=== PATIENT | male | born 1965 | race Caucasian/White ===

== ENCOUNTER 2017-01-22 17:03 | Emergency (ER) | payer BC ==
[2017-01-22 17:18] VITALS: BP 119/66
--- NOTE | 2017-01-22 17:43 | UC ---
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 cough started 5 days ago. aggravated by heat in his office this week. but better now that he is in AC. mid strenal chest pain started this AM. crushing like someone is sitting on his chest. hurts when he coughs. + DM, last a1c 6.7, on statin for lipids and ASA for prophylaxis. + h/o DVT in rt leg in past s/p ankle frx, although genetic testing was never done. He is adopted and does not know any FHx. No asthma or copd. never needed inhalers. hashad pneumonia in past. unsure this is what it felt like. c/o rt leg cramp last night in calf, left foot also. no swelling in calf. no pain now. no fevers that he knows of. - History of Current Complaint Chief Complaint: UCGeneralIllness Stated Complaint: COUGH,CHEST PAIN,HEADACHES (DIABETIC) Time Seen by Provider: 01/22/17 17:33 - Allergies/Home Medications Allergies/Adverse Reactions: Allergies Allergy/AdvReac Type Severity Reaction Status Date / Time Morphine Allergy Mild Itching Verified 01/22/17 17:18 Home Medications: Home Medications Aspirin [Aspirin Adult Low Dose 81 MG] 81 mg PO DAILY 01/22/17 [History Confirmed 01/22/17] Ibuprofen TAB* [Motrin TAB* 800 MG] 800 mg PO Q6H PRN 01/22/17 [History Confirmed 01/22/17] Methylphenidate HCl [Ritalin LA] 10 mg PO DAILY 01/22/17 [History Confirmed ] glipiZIDE TAB.XL* [Glucotrol XL*] 5 mg PO DAILY 01/22/17 [History Confirmed ] PMH/Surg Hx/FS Hx/Imm Hx Endocrine History: Diabetes, Dyslipidemia Cardiovascular History: Hypertension - Surgical History Surgical History: Yes Surgery Procedure, Year, and Place: henia repair 04/2011 nasal surgery 2009- sleep apnea. right knee and right ankle surgery - Family History Known Family History: Positive: Unknown - adopted - Social History Alcohol Use: None Substance Use Type: None Smoking Status (MU): Never Smoked Tobacco Review of Systems Constitutional: Negative Skin: Negative Eyes: Negative ENT: Negative Respiratory: Cough Cardiovascular: Negative, Chest Pain Gastrointestinal: Negative Genitourinary: Negative Motor: Negative Neurovascular: Negative Musculoskeletal: Negative Neurological: Negative Psychological: Negative Is Patient Immunocompromised?: No All Other Systems Reviewed And Are Negative: Yes Physical Exam Triage Information Reviewed: Yes Appearance: Well-Appearing, No Pain Distress, Well-Nourished Vital Signs: Initial Vital Signs Temp 97.8 F 01/22/17 17:10 Pulse 76 01/22/17 17:10 Resp 16 01/22/17 17:10 BP 119/66 01/22/17 17:10 Pulse Ox 97 01/22/17 17:10 Vital Signs Reviewed: Yes Eye Exam: Normal ENT Exam: Normal ENT: Positive: Pharynx normal, TMs normal. Negative: Tonsillar swelling, Tonsillar exudate Dental Exam: Normal Neck exam: Normal Neck: Positive: Supple, Nontender, No Lymphadenopathy Respiratory Exam: Normal Respiratory: Positive: Chest non-tender, Lungs clear, Normal breath sounds, No respiratory distress, No accessory muscle use. Negative: Crackles, Rhonchi Cardiovascular Exam: Normal Cardiovascular: Positive: RRR, No Murmur, Pulses Normal Abdomen Description: Positive: Nontender, Soft Musculoskeletal Exam: Normal Musculoskeletal: Positive: Other: - no calf swelling or tenderness. Neurological Exam: Normal Psychological Exam: Normal Skin Exam: Normal UC Diagnostic Evaluation - Laboratory O2 Sat by Pulse Oximetry: 97 Respiratory Course/Dx - Course Course Of Treatment: Adv ER for further eval to r/o ACS with h/o DM, HTN, lipids. also h/o dvt. adopted adn fhx unknown they are very agreeable . pt refuses ambulance [place] d/t cost. wants ambulance. AMA form signed aware of risks of MVA, delay in arrival, permanent disability loss of work and . AMA signed. EKG - NSR, nml axis, no av/josseline changes. not compared to prev. S/w Dr Alfred[facility] approx [phone] and accepts pt. - Differential Dx/Diagnosis Differential Diagnosis/HQI/PQRI: Bronchitis, CHF, Pulmonary Edema, Pulmonary Embolism, Other - ACS Provider Diagnoses: chest pain, cough Discharge - Discharge Plan Condition: Fair Disposition: TRANS HIGHER LVL OF CARE FAC Additional Instructions: Please make sure you go directly to the emergency room for further evaluation. Do not stop to get anything to eat or ho home first. we discussed ruling out heart disease and blood clot going into your chest.
== END 2017-01-22 17:53 | disposition short-term general hospital (02) ==
LOC: UCCORT 17:03
DX: R07.9 Chest pain, unspecified (principal); R05 Cough; E11.9 Type 2 diabetes mellitus without complications
CPT/HCPCS: 93005; 99212; G0463

== ENCOUNTER 2018-07-26 17:35 | Emergency (ER) | payer BC ==
[2018-07-26 18:50] VITALS: BP 126/75
[2018-07-26 19:42] LABS: Influenza A Molecular NEGATIVE (Negative); Influenza B Molecular NEGATIVE (Negative)
[2018-07-26] MEDS ORDERED: predniSONE TAB* 20 MG PO ONE (19:48)
[2018-07-26] MEDS ORDERED: Albuterol HFA INHALER* 8 gm MDI INH ONE (19:49)
--- NOTE | 2018-07-26 19:49 | UC ---
Respiratory Complaint HPI - HPI Summary HPI Summary: 53 yo male with cough/chest tightness/wheezing x 3 days green sputum no SOB hx of asthma and pneumonia - History of Current Complaint Chief Complaint: UCGeneralIllness Stated Complaint: COUGH,CHEST CAMERON,FEVER Time Seen by Provider: 07/26/18 19:17 Hx Obtained From: Patient Onset/Duration: Gradual Onset, Lasting Days Timing: Constant Severity Initially: Mild Severity Currently: Moderate Pain Intensity: 5 Pain Scale Used: 0-10 Numeric Character: Cough: Productive Aggravating Factors: Exertion, Deep Breaths Alleviating Factors: Nothing Associated Signs And Symptoms: Positive: Chills, Wheezing, URI, Nasal Congestion - Allergies/Home Medications Allergies/Adverse Reactions: Allergies Allergy/AdvReac Type Severity Reaction Status Date / Time morphine Allergy Itching Verified 07/26/18 18:44 Home Medications: Home Medications guaiFENesin [Mucinex] 600 mg PO ONCE 07/26/18 [History Confirmed 07/26/18] PMH/Surg Hx/FS Hx/Imm Hx Previously Healthy: Yes Endocrine History: Diabetes Cardiovascular History: Hypertension Respiratory History: Asthma, Pneumonia - Surgical History Surgical History: Yes Surgery Procedure, Year, and Place: henia repair 04/2011 nasal surgery 2009- sleep apnea. right knee and right ankle surgery - Family History Known Family History: Positive: Unknown - adopted - Social History Alcohol Use: None Substance Use Type: None Smoking Status (MU): Never Smoked Tobacco Review of Systems All Other Systems Reviewed And Are Negative: Yes Constitutional: Positive: Chills, Fatigue Skin: Positive: Negative Eyes: Positive: Negative ENT: Positive: Nasal Discharge, Sinus Congestion Respiratory: Positive: Cough, Other - wheezing Cardiovascular: Positive: Negative Gastrointestinal: Positive: Negative Genitourinary: Positive: Negative Motor: Positive: Negative Neurovascular: Positive: Negative Musculoskeletal: Positive: Negative Neurological: Positive: Negative Psychological: Positive: Negative Is Patient Immunocompromised?: Yes Physical Exam Triage Information Reviewed: Yes Appearance: Well-Appearing, No Pain Distress, Well-Nourished Vital Signs: Initial Vital Signs Temp 97.9 F 07/26/18 18:46 Pulse 78 07/26/18 18:46 Resp 19 07/26/18 18:46 BP 126/75 07/26/18 18:46 Pulse Ox 97 07/26/18 18:46 Vital Signs Reviewed: Yes Eyes: Positive: Conjunctiva Clear ENT: Positive: Hearing grossly normal, Pharynx normal, Nasal congestion, Nasal drainage, Uvula midline. Negative: Tonsillar swelling, Tonsillar exudate, Trismus, Muffled voice, Hoarse voice, Sinus tenderness Dental Exam: Normal Neck: Positive: Supple, Nontender, No Lymphadenopathy Respiratory: Positive: No respiratory distress, No accessory muscle use, Wheezing - with forced expiration, Other: - bronchospastic cough Cardiovascular: Positive: RRR, No Murmur Musculoskeletal: Positive: ROM Intact, No Edema Neurological: Positive: Alert Psychological Exam: Normal Skin Exam: Normal Diagnostics - Radiology No standard instances Radiology Interpretation Completed By: ED Physician Summary of Radiographic Findings: NAD Respiratory Course/Dx - Course Course Of Treatment: influenza (-) - Differential Dx/Diagnosis Provider Diagnosis: Bronchitis, acute, with bronchospasm Discharge - Sign-Out/Discharge Documenting (check all that apply): Patient Departure All imaging exams completed and their final reports reviewed: No - Discharge Plan Condition: Stable Disposition: HOME Prescriptions: Amoxicillin PO (*) [Amoxicillin 875 MG (*)] 875 mg PO BID #14 tab predniSONE [Deltasone 20 MG TAB] 40 mg PO DAILY #8 tab Patient Education Materials: Acute Bronchitis (ED), How to Use a Metered-Dose Inhaler and a Spacer (ED) Referrals: Zayra Jones MD [Primary Care Provider] - 5 Days (if not better) Additional Instructions: recheck for new or worsening symptoms - Billing Disposition and Condition Condition: STABLE Disposition: Home
[2018-07-26] MEDS ORDERED: Amoxicillin PO (*) 250 MG CAP PO ONE (19:51)
[2018-07-26] MEDS ORDERED: Amoxicillin PO (*) 500 MG CAP PO ONE (19:51)
--- NOTE | 2018-07-27 16:33 | ED ---
Progress - Progress Note Progress Note: chest xray NAD per radiology reading. Course/Dx - Diagnoses Provider Diagnoses: Bronchitis, acute, with bronchospasm Discharge - Sign-Out/Discharge Documenting (check all that apply): Patient Departure All imaging exams completed and their final reports reviewed: Yes - Discharge Plan Condition: Stable Disposition: HOME Prescriptions: Amoxicillin PO (*) [Amoxicillin 875 MG (*)] 875 mg PO BID #14 tab predniSONE [Deltasone 20 MG TAB] 40 mg PO DAILY #8 tab Patient Education Materials: Acute Bronchitis (ED), How to Use a Metered-Dose Inhaler and a Spacer (ED) Referrals: Zayra Jones MD [Primary Care Provider] - 5 Days (if not better) Additional Instructions: recheck for new or worsening symptoms - Billing Disposition and Condition Condition: STABLE Disposition: Home
== END 2018-07-26 20:19 | disposition home or self-care (01) ==
LOC: UCCORT 17:35
DX: J20.9 Acute bronchitis, unspecified (principal); J45.909 Unspecified asthma, uncomplicated; E11.9 Type 2 diabetes mellitus without complications; I10 Essential (primary) hypertension; Z87.01 Personal history of pneumonia (recurrent); Z88.5 Allergy status to narcotic agent
CPT/HCPCS: 71046; 99213; A9270-GY; G0463; J7512

== ENCOUNTER 2020-12-15 07:30 | Inpatient (IN) ==
[~2020-12-15 07:30] MED LIST: Buffered Lidocaine 1% SYRIN 1 ml INTRADERM ONE; Famotidine IV 10 MG/ML 2 ml VIAL (20 mg) IV ONE; Lactated Ringers 1000 ml BAG 1,000 ML IV SCH
[2020-12-15] MEDS ORDERED: ceFAZolin 2 GM in NS PREMIX 2 GM/100 ML BAG IVPB ONE (08:22)
[2020-12-15] MEDS ORDERED: Famotidine IV 10 MG/ML 2 ml VIAL (20 mg) ONE (08:22)
[2020-12-15] MEDS ORDERED: ceFAZolin 1 GM ADVAN 1 GM ADDV.VIAL IVPB ONE (08:22)
[2020-12-15] MEDS ORDERED: Heparin 5000 UNITS/ML 1 mL VIAL ONE (08:22)
[2020-12-15] MEDS ORDERED: Bupivacaine 0.25% EPI 200,000 30 ML SDV ONE (09:13)
[2020-12-15] MEDS ORDERED: Dexamethasone IV 4 MG/ML VIAL 1 ml VIAL ONE (09:21)
[2020-12-15] MEDS ORDERED: Lidocaine 2% PF 5 ML VIAL ONE (09:21)
[2020-12-15] MEDS ORDERED: Ondansetron 4 mg VIAL 2 MG/ML 2 ml VIAL ONE ×2 (09:21→13:49)
[2020-12-15] MEDS ORDERED: Propofol 10 MG/ML 20 ML BTL ONE (09:21)
[2020-12-15] MEDS ORDERED: Ketamine HCL 50 mg/ml 10 ml VIAL (500 MG) ONE (09:22)
[2020-12-15] MEDS ORDERED: fentaNYL 250 mcg/5 ml 50 MCG/ML 5 ml VIAL (250 MCG) ONE (09:22)
[2020-12-15] MEDS ORDERED: Rocuronium 50 mg VIAL 10 mg/ml 5 ml VIAL (50 mg) ONE ×2 (09:22→10:37)
[2020-12-15] MEDS ORDERED: Midazolam 5 mg/5 ml VIAL 1 mg/ml 5 ml VIAL (5 mg) ONE (09:22)
[2020-12-15] MEDS ORDERED: Dextrose 50% Syringe 50 ml 25 GM/50 ML SYRINGE ONE (09:56)
[2020-12-15] MEDS ORDERED: EPHEDrine (Pressors) 50 MG/ML VIAL ONE (10:29)
[2020-12-15] MEDS ORDERED: Glycopyrrolate IV 0.2 MG/ML 1 ML VIAL ONE (10:56)
[2020-12-15] MEDS ORDERED: Atropine 1 MG/ML INJ 1 ML VIAL ONE (11:04)
[2020-12-15] MEDS ORDERED: Acetaminophen IV 1 GM/100ML 100 ML IV ONE (11:40)
[2020-12-15] MEDS ORDERED: Sugammadex 500 MG/5 ML 5 ml VIAL IV PUSH ONE (13:04)
[2020-12-15] MEDS ORDERED: Metoclopramide 5 MG/ML VIAL (10 mg) IV PRN (13:40)
[2020-12-15] MEDS ORDERED: Naloxone 0.4 mg VIAL 0.4 mg/ml 1 ml VIAL IV PRN (13:40)
[2020-12-15] MEDS ORDERED: Ondansetron 4 mg VIAL 2 MG/ML 2 ml VIAL IV PRN ×2 (13:40→13:50)
[2020-12-15] MEDS ORDERED: fentaNYL 100 mcg/2 ml 50 MCG/ML VIAL ONE (13:48)
[2020-12-15] MEDS ORDERED: Metoclopramide 5 MG/ML VIAL (10 mg) ONE (13:49)
[2020-12-15] MEDS ORDERED: diPHENhydraMINE IV 50 MG/ML 1 ml VIAL (BENADRYL) SLOW PUSH PRN (13:50)
[2020-12-15] MEDS ORDERED: HYDROmorphone 0.5 MG/0.5 ML SYRINGE IV SLOW PU PRN (13:50)
[2020-12-15] MEDS: fentaNYL 100 mcg/2 ml 50 MCG/ML VIAL IV PRN ×2 (13:51→14:21)
[2020-12-15] MEDS: Lactated Ringers 1000 ml BAG 1,000 ML IV SCH (15:28)
[2020-12-15] MEDS: HYDROmorphone 1 MG/1 ML SYRINGE IV SLOW PU PRN ×2 (17:08→22:19)
[2020-12-15] MEDS: Heparin 5000 UNITS/ML 1 mL VIAL SUBCUT SCH (22:19)
[2020-12-15] MEDS: Famotidine IV 10 MG/ML 2 ml VIAL (20 mg) IV SLOW PU SCH (22:20)
[2020-12-16] MEDS: HYDROmorphone 1 MG/1 ML SYRINGE IV SLOW PU PRN ×2 (04:08→08:42)
[2020-12-16] MEDS: Lactated Ringers 1000 ml BAG 1,000 ML IV SCH (04:53)
[2020-12-16] MEDS: Heparin 5000 UNITS/ML 1 mL VIAL SUBCUT SCH ×3 (06:20→22:04)
[2020-12-16] MEDS: Famotidine IV 10 MG/ML 2 ml VIAL (20 mg) IV SLOW PU SCH ×2 (08:42→21:58)
[2020-12-16] MEDS: D5W 1/2 NS KCl 20 meq 1000 ml 1,000 ML IV SCH ×2 (12:42→20:18)
[2020-12-17] MEDS: D5W 1/2 NS KCl 20 meq 1000 ml 1,000 ML IV SCH (04:23)
[2020-12-17] MEDS: Heparin 5000 UNITS/ML 1 mL VIAL SUBCUT SCH (06:39)
[2020-12-17] MEDS: Famotidine IV 10 MG/ML 2 ml VIAL (20 mg) IV SLOW PU SCH (08:10)
[2020-12-17 11:30] VITALS: BP 106/64
[2020-12-18] MEDS ORDERED: Scopolamine PATCH Remove NOTE PATCH OFF ONE (06:00)
== END 2020-12-17 11:55 | disposition home or self-care (01) | DRG 403 ==
LOC: AA 09:02 → SSU 15:14
PROVIDERS: ADMIT Surgery; ATTEND Surgery

== ENCOUNTER 2023-09-14 05:30 | Observation (INO) ==
[~2023-09-14 05:30] MED LIST changes: -Buffered Lidocaine 1% SYRIN 1 ml INTRADERM ONE; -Famotidine IV 10 MG/ML 2 ml VIAL (20 mg) IV ONE; -Lactated Ringers 1000 ml BAG 1,000 ML IV SCH; +NS 0.45% 1000 ml BAG 1,000 ML IV SCH; +Naloxone 0.4 mg VIAL 0.4 mg/ml 1 ml VIAL IV PRN; +Ondansetron 4 mg VIAL 2 MG/ML 2 ml VIAL IV PRN
[2023-09-14] MEDS ORDERED: Chlorhexidine MOUTHWASH 0.12% 15 ML UDC ONE (05:59)
[2023-09-14] MEDS ORDERED: Scopolamine 1 mg/72hr PATCH ONE (06:33)
[2023-09-14] MEDS ORDERED: ceFAZolin 2 GM in NS PREMIX 2 GM/100 ML BAG IVPB ONE (06:33)
[2023-09-14 06:37] LABS: Rapid COVID-19 Molecular Undetected (Undetected)
[2023-09-14] MEDS ORDERED: Sevoflurane BOTTLE ONE (06:38)
[2023-09-14] MEDS ORDERED: Lidocaine 2% PF 5 ML VIAL ONE (06:40)
[2023-09-14] MEDS ORDERED: Propofol 10 MG/ML 20 ML BTL ONE (06:40)
[2023-09-14] MEDS ORDERED: Rocuronium 50 mg VIAL 10 mg/ml 5 ml VIAL (50 mg) ONE ×2 (06:40→07:55)
[2023-09-14] MEDS ORDERED: Dexamethasone IV 4 MG/ML VIAL 1 ml VIAL ONE (06:43)
[2023-09-14] MEDS ORDERED: Ondansetron 4 mg VIAL 2 MG/ML 2 ml VIAL ONE (06:43)
[2023-09-14] MEDS ORDERED: Phenylephrine IV 10 MG/ML 1 ml VIAL ONE (06:46)
[2023-09-14] MEDS ORDERED: Dexmedetomidine 200 mcg/2 ml 2 ml VIAL (200 mcg) ONE (06:48)
[2023-09-14] MEDS ORDERED: Midazolam 2 mg/2 ml VIAL 1 mg/ml 2 ml VIAL (2 mg) ONE (06:50)
[2023-09-14] MEDS ORDERED: fentaNYL 100 mcg/2 ml 50 MCG/ML VIAL ONE ×3 (06:50→10:29)
[2023-09-14] MEDS ORDERED: Lidocaine 1% w EPI 1:200,000 SDV 30 ML VIAL ONE (07:00)
[2023-09-14] MEDS ORDERED: Thrombin 5,000 UNITS(BOVINE) for Ultrasound Guided Pseudoaneursym ONE (07:00)
[2023-09-14] MEDS ORDERED: ceFAZolin VIAL VIAL ONE (07:00)
[2023-09-14] MEDS ORDERED: Gelfoam Sponge SIZE 100 SPONGE ONE (07:01)
[2023-09-14] MEDS ORDERED: Glycopyrrolate IV 0.2 MG/ML 1 ML VIAL ONE (07:36)
[2023-09-14] MEDS ORDERED: Acetaminophen IV 1 GM/100ML 1,000 MG/100 ML BAG IV ONE (08:04)
[2023-09-14] MEDS ORDERED: Ondansetron 4 mg VIAL 2 MG/ML 2 ml VIAL IV PRN (09:35)
[2023-09-14] MEDS ORDERED: Calcium Carb (TUMS) 500 mg CHEW TAB PO PRN (09:35)
[2023-09-14] MEDS ORDERED: Benzocaine/Menthol LOZ MT PRN (09:35)
[2023-09-14] MEDS ORDERED: Senna TAB 8.6 mg TAB PO PRN (09:35)
[2023-09-14] MEDS ORDERED: Dextran 70/Hypromellose Tears Eye Drops 15 ml BTL (for Artificials Tears) BOTH EYES PRN (09:35)
[2023-09-14] MEDS ORDERED: Phenol 1.4% Throat Spray BTL MT PRN (09:35)
[2023-09-14] MEDS ORDERED: Magnesium Hydroxide LIQ 30 ML UDC PO PRN (09:35)
[2023-09-14] MEDS: fentaNYL 100 mcg/2 ml 50 MCG/ML VIAL IV PRN (10:02)
[2023-09-14] MEDS: Lactated Ringers 1000 ml BAG 1,000 ML IV SCH ×2 (12:07→16:52)
[2023-09-14] MEDS ORDERED: Morphine 2 MG/ML SYRINGE IV PRN (14:26)
[2023-09-14] MEDS: Acetaminophen IV 1 GM/100ML 1,000 MG/100 ML BAG IV ONE (16:52)
[2023-09-14] MEDS: Scopolamine 1 mg/72hr PATCH TRANSDERM ONE (16:52)
[2023-09-14] MEDS: Buffered Lidocaine 1% SYRIN 1 ml INTRADERM ONE (16:52)
[2023-09-15 10:01] VITALS: BP 121/74
== END 2023-09-15 10:50 | disposition home or self-care (01) ==
LOC: OR 05:30 → SSU 05:30
PROVIDERS: ADMIT Neurological Surgery; ATTEND Neurological Surgery